=== PATIENT | male | born 1965 | race Caucasian/White ===

== ENCOUNTER 2017-01-08 03:47 | Emergency (ER) | payer MEDICARE ==
[~2017-01-08] VITALS: Ht 177.8 cm; Wt 98.0 kg
[~2017-01-08 03:47] MED LIST: ALDA50TA PO; AMBI10TA PO; BUPR150T PO; DICY10CA13 PO; FLUT1INH; HYDR-3111 PO; METH500T3 PO
[2017-01-08 03:48] VITALS: BP 140/77; PULSE 81; RESP 20; TEMP 98.5; O2SAT 100
--- NOTE | 2017-01-08 04:07 | PD ---
HPI Chief Complaint: Respiratory Symptoms Time Seen by Provider: 03:55 Travel History International Travel<30 days: No Contact w/Intl Traveler<30days: No Traveled to known affect area: No History of Present Illness HPI WOKE UP ABOUT 2HRS AGO, DRY COUGH, WHEEZING, DENIES SMOKING, DENIES RUNNY NOSE/ FEVER, NO N/V/D/ABD PAIN/ STATES THAT EARLIER HAD GREENISH SPUTUM BUT NOT NOW. 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 PCP DR NICOLAS? PMHX : ASTHMA SMOKES TOBB OCCASIONALLY PFSH Social History Tobacco Use: No Allergies-Medications (Allergen,Severity, Reaction): Coded Allergies: No Known Allergies (Unverified , 01/08/17) Reported Meds & Prescriptions Reported Meds & Active Scripts Active Zithromax Z-Sander (Azithromycin) 250 Mg Dspk 250 Mg PO DIRECTED 500 MG (2 tabs) day 1, then 1 tab days 2-5. Medrol Dosepak (Methylprednisolone) 4 Mg Dspk 4 Mg PO DIRECTED Per Pharmacist direction Ventolin Hfa 18 GM Inh (Albuterol Sulfate) 90 Mcg/Act Aer 2 Puff INH Q4-6H PRN Reported Vicodin 5/300 (Hydrocodone/Acetaminophen 5/300) 5 Mg/300 Mg Tab 1 Tab PO BID PRN Ambien (Zolpidem Tartrate) 10 Mg Tab 10 Mg PO HS Methocarbamol 500 Mg Tab 500 Mg PO BID Breo Ellipta 100-25 Mcg/INH (Fluticasone Furoate-Vilanterol) 1 Inh Inh Bupropion Hcl Sr (Bupropion HCl) 150 Mg Tab 150 Mg PO BID Dicyclomine HCl 10 Mg Cap 10 Mg PO QID Aldactazide 50/50 mg Tab (Hydrochlorothiazide/Spironolacto 50/50 mg Tab) Tab 12.5 Tab PO DAILY Review of Systems Except as stated in HPI: all other systems reviewed are Neg Respiratory: Positive: Cough, Wheezing Physical Exam Narrative GENERAL: SKIN: Warm and dry. HEAD: Atraumatic. Normocephalic. EYES: Pupils equal and round. No scleral icterus. No injection or drainage. ENT: No nasal bleeding or discharge. Mucous membranes pink and moist. NECK: Trachea midline. No JVD. CARDIOVASCULAR: Regular rate and rhythm. RESPIRATORY: No accessory muscle use, WHEEZING KIMBERLY, DECREASED TV, NO CRACKLES. GASTROINTESTINAL: Abdomen soft, non-tender, nondistended. MUSCULOSKELETAL: Extremities without clubbing, cyanosis, or edema. No obvious deformities. NEUROLOGICAL: Awake and alert. No obvious cranial nerve deficits. Motor grossly within normal limits. Five out of 5 muscle strength in the arms and legs. Normal speech. PSYCHIATRIC: Appropriate mood and affect; insight and judgment normal. Data Data Last Documented VS Vital Signs Date Time Temp Pulse Resp B/P (MAP) Pulse Ox O2 Delivery O2 Flow Rate FiO2 01/08/17 05:42 90 16 134/90 (105) 99 01/08/17 04:52 Room Air 01/08/17 04:32 98.4 01/08/17 04:23 21 Orders Orders Complete Blood Count With Diff (01/08/17 04:02) Comprehensive Metabolic Panel (01/08/17 04:02) Ckmb (Isoenzyme) Profile (01/08/17 04:02) Troponin I (01/08/17 04:02) B-Type Natriuretic Peptide (01/08/17 04:02) Prothrombin Time / Inr (Pt) (01/08/17 04:02) Act Partial Throm Time (Ptt) (01/08/17 04:02) D-Dimer (01/08/17 04:02) Chest, Single Ap (01/08/17 04:02) Iv Access Insert/Monitor (01/08/17 04:02) Ecg Monitoring (01/08/17 04:02) Oximetry (01/08/17 04:02) Methylprednisolone So Succ Inj (Solumedr (01/08/17 04:15) Albuterol Neb (Albuterol Neb) (01/08/17 04:15) CKMB (01/08/17 04:15) CKMB% (01/08/17 04:15) Labs Laboratory Tests Test 01/08/17 04:15 White Blood Count 9.6 TH/MM3 Red Blood Count 4.68 MIL/MM3 Hemoglobin 14.9 GM/DL Hematocrit 44.4 % Mean Corpuscular Volume 94.9 FL Mean Corpuscular Hemoglobin 31.9 PG Mean Corpuscular Hemoglobin Concent 33.6 % Red Cell Distribution Width 13.7 % Platelet Count 271 TH/MM3 Mean Platelet Volume 7.3 FL Neutrophils (%) (Auto) 56.3 % Lymphocytes (%) (Auto) 35.3 % Monocytes (%) (Auto) 4.9 % Eosinophils (%) (Auto) 2.2 % Basophils (%) (Auto) 1.3 % Neutrophils # (Auto) 5.4 TH/MM3 Lymphocytes # (Auto) 3.4 TH/MM3 Monocytes # (Auto) 0.5 TH/MM3 Eosinophils # (Auto) 0.2 TH/MM3 Basophils # (Auto) 0.1 TH/MM3 CBC Comment DIFF FINAL Differential Comment Prothrombin Time 10.4 SEC Prothromb Time International Ratio 0.9 RATIO Activated Partial Thromboplast Time 28.7 SEC D-Dimer Quantitative (PE/DVT) 0.25 MG/L FEU Blood Urea Nitrogen 15 MG/DL Creatinine 1.02 MG/DL Random Glucose 97 MG/DL Total Protein 7.6 GM/DL Albumin 4.1 GM/DL Calcium Level 8.6 MG/DL Alkaline Phosphatase 63 U/L Aspartate Amino Transf (AST/SGOT) 24 U/L Alanine Aminotransferase (ALT/SGPT) 36 U/L Total Bilirubin 0.2 MG/DL Sodium Level 141 MEQ/L Potassium Level 4.2 MEQ/L Chloride Level 108 MEQ/L Carbon Dioxide Level 23.9 MEQ/L Anion Gap 9 MEQ/L Estimat Glomerular Filtration Rate 76 ML/MIN Total Creatine Kinase 140 U/L Creatine Kinase MB 2.2 NG/ML Troponin I LESS THAN 0.02 NG/ML B-Type Natriuretic Peptide 7 PG/ML MDM Medical Decision Making Medical Screen Exam Complete: Yes Emergency Medical Condition: Yes Medical Record Reviewed: Yes Differential Diagnosis PNA V ASTHMA V PULM EDEMA V STEMI V PE Narrative Course PATIENT NOT FOUND TO HAVE ANY PTX/PNA ON CXR, LABS NOT SUGGESTIVE OF PE OR CHF, NO LEUKOCYTOSIS BUT WITH HISTORICAL PROD SPUTUM, WILL D/C ON PO ABX, STEROID AND ALBUTEROL.... Diagnosis Primary Impression: ASTHMA EXACERBATION WITHOUT HYPOXEMIA Patient Instructions: Asthma (ED), General Instructions Scripts Azithromycin (Zithromax Z-Sander) 250 Mg Dspk 250 MG PO DIRECTED for Infection, #1 DSPK 0 Refills 500 MG (2 tabs) day 1, then 1 tab days 2-5. Prov: Gonzalo Elaine MD 01/08/17 Methylprednisolone Dosepak (Medrol Dosepak) 4 Mg Dspk 4 MG PO DIRECTED, #1 DSPK 0 Refills Per Pharmacist direction Prov: Gonzalo Elaine MD 01/08/17 Albuterol 18 GM Inh (Ventolin Hfa 18 GM Inh) 90 Mcg/Act Aer 2 PUFF INH Q4-6H Y for SHORTNESS OF BREATH, #1 INHALER 0 Refills Prov: Gonzalo Elaine MD 01/08/17 Disposition: 01 DISCHARGE HOME Condition: Stable Gonzalo Elaine MD Jan 08, 2017 04:07
[2017-01-08] MEDS ORDERED: methylPREDNISolone SOD SUCC 125 MG/2 ML VIAL IV PUSH ONE (04:15)
[2017-01-08] MEDS: RESP: ALBUTEROL 2.5 MG/3 ML NEB (SCH) INH (04:22)
[2017-01-08 04:23] VITALS: O2SAT 98
[2017-01-08 04:32] VITALS: BP 149/91; PULSE 90; RESP 22; TEMP 98.4; O2SAT 99
[2017-01-08 04:33] LABS: AUTOMATED NEUTROPHIL # 5.4 TH/MM3 (1.8-7.7); BASOPHIL # 0.1 TH/MM3 (0-0.2); BASOPHIL % 1.3 % (0.0-2.0); EOSINOPHIL # 0.2 TH/MM3 (0-0.4); EOSINOPHIL % 2.2 % (0.0-4.0); HEMATOCRIT 44.4 % (39.0-51.0); HEMO FLAGS DIFF FINAL; LYMPH % 35.3 % (9.0-44.0); LYMPHOCYTE # 3.4 TH/MM3 (1.0-4.8); MEAN CELL VOLUME 94.9 FL (80.0-100.0); MEAN CORPUSCULAR HEMOGLOBIN 31.9 PG (27.0-34.0); MEAN CORPUSCULAR HGB CONC 33.6 % (32.0-36.0); MONO % 4.9 % (0.0-8.0); NEUT % 56.3 % (16.0-70.0); PLATELET COUNT 271 TH/MM3 (150-450); RED BLOOD COUNT 4.68 MIL/MM3 (4.50-5.90); RED CELL DISTRIBUTION WIDTH 13.7 % (11.6-17.2); WHITE BLOOD COUNT 9.6 TH/MM3 (4.0-11.0)
--- NOTE | 2017-01-08 04:37 | RADRPT ---
EXAM DATE/TIME: 01/08/2017 04:08 [facility] COMPARISON: No previous studies available for comparison. INDICATIONS : Short of breath. MEDICAL HISTORY : Hypertension. Chronic obstructive pulmonary disease. Asthma. SURGICAL HISTORY : None. ENCOUNTER: Initial ACUITY: 1 day PAIN SCORE: 4/10 LOCATION: Left chest FINDINGS: A single view of the chest demonstrates the lungs to be symmetrically aerated without evidence of mas s, infiltrate or effusion. The cardiomediastinal contours are unremarkable. Osseous structures are intact. CONCLUSION: 1. No active disease. Tortuous aorta. Yariel Cervantes MD on January 08, 2017 at 4:35 Board Certified Radiologist. This report was verified electronically.
[2017-01-08 04:45] LABS: ALKALINE PHOSPHATASE 63 U/L (45-117); APTT (PATIENT) 28.7 SEC (24.3-30.1); CREATINE KINASE 140 U/L (39-308); INTERNATIONAL NORMALIZED RATIO 0.9 RATIO; PROTHROMBIN TIME - PATIENT 10.4 SEC (9.8-11.6); TOTAL BILIRUBIN ADULT 0.2 MG/DL (0.2-1.0)
[2017-01-08 04:57] LABS: CKMB 2.2 NG/ML (0.5-3.6)
[2017-01-08] MEDS ORDERED: VENTAER INH (05:25)
[2017-01-08] MEDS ORDERED: MEDR4PAK PO (05:25)
[2017-01-08] MEDS ORDERED: ZITHTAB PO (05:25)
[2017-01-08 05:40] LABS: ALT (GPT) 36 U/L (12-78); ANION GAP 9 MEQ/L (5-15); AST (GOT) 24 U/L (15-37); BICARBONATE 23.9 MEQ/L (21.0-32.0); BLOOD UREA NITROGEN 15 MG/DL (7-18); CHLORIDE 108 MEQ/L (98-107); GLOMERULAR FILTRATION RATE 76 ML/MIN (>89); POTASSIUM 4.2 MEQ/L (3.5-5.1); SODIUM (NA) 141 MEQ/L (136-145)
[2017-01-08 05:42] VITALS: BP 134/90
== END 2017-01-08 05:51 | disposition home or self-care (01) ==
LOC: NEPE 03:47
DX: J45.901 Unspecified asthma with (acute) exacerbation (principal); R09.02 Hypoxemia
CPT/HCPCS: 71010; 80053; 82550; 82552; 83880; 84484; 85025; 85379; 85610; 85730; 94640; 94664; 96374; 99284; J2930; J7613